=== PATIENT | male | born 1930 | race Two or more races ===

== ENCOUNTER 2019-04-17 12:02 | Outpatient (CLI) | payer OTHER | END 2019-04-17 12:04 | disposition home or self-care (01) | LOC: TOM 12:02 | DX: R22.9 Localized swelling, mass and lump, unspecified (principal); N20.0 Calculus of kidney ==

== ENCOUNTER 2019-05-09 07:21 | Outpatient (CLI) | payer OTHER | END 2019-05-09 07:37 | disposition home or self-care (01) | LOC: SONOGRAMA 07:21 → MAMO-SONO 05-10 07:15 | DX: E04.2 Nontoxic multinodular goiter (principal) ==